=== PATIENT | female | born 1990 | race Caucasian/White ===

== ENCOUNTER → 2017-03-29 10:09 | Outpatient (CLI) | payer MEDICAID | END | disposition home or self-care (01) | LOC: D.US 10:09 | DX: F17.200 Nicotine dependence, unspecified, uncomplicated (principal); R04.2 Hemoptysis ==

== ENCOUNTER 2018-07-21 22:28 | Inpatient (IN) | payer MEDICAID ==
[~2018-07-21] VITALS: Ht 162.6 cm; Wt 64.3 kg
--- NOTE | ~2018-07-21 | HEMODYNAMI ---
PATIENT:KARI ALY MEDICAL RECORD: [id number] : [birth year] [id number] ADMISSION DATE: 07/22/18 Generatedon:07/25/201814:30 Patient name: KARI ALY Patient #: [id number] SSN: : 1990 Date of study: 07/25/2018 Page: Of Hemodynamic Procedure Report Patient Data Patient Demographics Procedure consent was obtained First Name: KARI Gender: Female Last Name: SHEEBA : 1990 Middle Initial: ISAURA Age: 27 year(s) Patient #: [id number] Race: Unknown Additional ID: [id number] Contact details [address]: [address] [place] [address] State: [place] City: [place] Zip code: [address] Past Medical History Allergies Allergen Reaction Date Comments Reported Penicillins 07/25/2018 Amoxicillin 07/25/2018 Admission Admission Data Admission Date: 07/22/2018 Admission Time: 3:48 Room #: D2134 Procedure Procedure Types Cath Procedure Diagnostic Procedure MISSY Procedure Description Procedure Date Procedure Date: 07/25/2018 Procedure Start Time: 13:47 Procedure Staff Name Function Josiah King MD Performing Physician Emma Glaser RT Monitor Rissa Martinez RN Nurse Benito Clarke CRNA Additional personnel Mahad Bustillo Clipper Operator Procedure Medications Medication Administration Route Dosage Oxygen etCO2 Nasal cannula 2 l/min Hurricaine [place] P.O. 1 Sprays Refer to Anesthesia Notes for Sedation Medications Hemodynamics Rest Heart Rate: 78 (bpm) Snapshots Pre Cath Intra NCS Post Cath Vital Signs Time Heart Resp SPO2 etCO2 NIBP Rhythm Pain Sedation Rate (ipm) (%) (mmHg) (mmHg) Status Level (bpm) 14:14:05 86 16 99 122/72(90) NSR 0 (11) 10(A) , No pain 14:18:37 82 15 100 0 118/62(89) NSR 0 (11) 9(A) , No pain 14:23:37 84 14 100 24.7 Measuring NSR 0 (11) 9(A) , No pain 14:24:22 84 17 100 27 128/68(90) NSR 0 (11) 10(A) , No pain Medications Time Medication Route Dose Verified Delivered Reason Notes Effectiv eness by by 14:12:00 Oxygen etCO2 2 Josiah Kwok used for Nasal l/min St Prince Martinez RN procedure cannula 14:12:39 Hurricaine P.O. 1 Josiah Kwok used for [place] Sprays St Prince Martinez RN procedure MD 14:12:45 Refer to Josiah Kwok Anesthesia St Prince Martinez RN Notes for Sedation Medications Procedure Log Time Note 13:50:24 Emma Counts RT(R) sent for patient. Start room use. 14:00:42 Patient received from PCU to CCL 3 Alert and oriented. Tansferred to table in Supine position. 14:05:08 Time tracking: Regular hours (M-F 7:00 - 5:00) 14:05:13 Plan of Care:Hemodynamics will remain stable., Cardiac rhythm will remain stable., Comfort level will be maintained., Respiratory function will remain adequate., Patient/ family verbilizes understanding of procedure., Procedure tolerated without complication., Recovers from procedure without complications.. 14:05:49 Warm blankets applied, and jennifer hugger turned on for patient comfort. 14:05:49 Correct patient and procedure confirmed by team. 14:05:50 Signed procedure consent form obtained from patient. 14:05:51 ECG and BP/O2 sat monitors applied to patient. 14:05:53 Full Disclosure recording started 14:05:55 Rhythm: sinus rhythm 14:05:58 Baseline sample Acquired. 14:06:20 H&P Date Dictated: 07/24/2018 Within 30 days and on chart.. 14:06:21 Pre-procedure instructions explained to patient. 14:06:21 Pre-op teaching completed and patient verbalized understanding. 14:06:33 Family in waiting room. 14:06:34 Patient NPO since Midnight. 14:07:14 Patient allergic to Penicillins 14:07:18 Patient allergic to Amoxicillin 14:07:22 Is patient on blood thinner?No 14:08:46 Patient diabetic? No. 14:09:02 SEE ANESTHESIA NOTES FOR PRE ASSESSMENT 14:09:14 Patient pain scale 0/10 ?. 14:09:42 PICC LINE RIGHT UPPER ARM W/ NORMAL SALINE 14:09:46 Lab results completed and on chart. 14:10:14 Alarms reviewed by Mindy Bonilla 14:10:56 Benito Clarke CRNA present and monitoring patient for TIVA. 14:12:00 Oxygen 2 l/min etCO2 Nasal cannula was administered by Rissa Martinez RN; used for procedure; 14:12:39 Hurricaine [place] 1 Sprays P.O. was administered by Rissa Martinez RN; used for procedure; 14:12:45 Refer to Anesthesia Notes for Sedation Medications was administered by Rissa Martinez RN; ; 14:12:48 Vital chart was started 14:14:32 Mahad Bustillo Dust Mixer present for MISSY. 14:16:51 Final Timeout: patient, procedure, and site verified with staff and physician. All members of the team are in agreement. 14:16:57 Sedation plan: TIVA Medication:Propofol 14:17:01 Physical assessment completed. ASA score P 2 - A patient with mild systemic disease as per Josiah King MD. 14:18:37 MISSY started. 14:22:34 MISSY completed. 14:22:42 Procedure ended.(Physican Out) 14:22:53 Post procedure rhythm: unchanged. 14:22:57 Post-procedure physical assessment completed. ASA score P 2 - A patient with mild systemic disease as per Josiah King MD. 14:23:00 Post procedure instruction explained to patient.Patient verbalizes understanding. 14:23:01 Patient needs reinforcement of post procedure teaching. 14:23:12 See physician's report for complete and final results. 14:27:08 Vital chart was stopped 14:27:10 Report given to PCU. 14:27:13 Patient transfered to PCU with Bed. 14:27:23 End room use (Document Last) Signature Audit [place] Stage Time Signature Unsigned Intra-Procedure 07/25/2018 Emma 2:30:47 PM Counts RT(R) Signatures Monitor : Emma Signature : Counts RT Date : Time : [facility] [address] [facility] [place] [address]
--- NOTE | ~2018-07-21 | TEE ---
PATIENT:KARI ALY [facility] MEDICAL RECORD: [id number] LOCATION:D. D.213 AGE OF PATIENT: 27 ADMISSION DATE: 07/22/18 SEX: F REFERRING PHYSICIAN: INTERPRETING PHYSICIAN: OLIMPIA GONCALVES MD TRANSESOPHAGEAL ECHOCARDIOGRAM Date: 07/25/18 MISSY CHARGE Y INDICATIONS: ASSESS FOR VEGATATION PREMEDICATIONS: PATIENT'S RESPONSE PROCEDURE DOPPLER MEASUREMENTS: LVIT LA PA 121 RA LVOT 100 RVOT 64 Asc. Ao 136 AV Gradient Peak 7.42 AV Mean 4319 AV Area 1.8 MV Gradient Peak 5.12 MV Mean 1.04 MV Area INTERPRETATION: Doppler: 2-D: COLOR FLOW DOPPLER NORMAL SALINE STUDY: MISCELLANOUS: DIAGNOSIS: PLAN: Linseed Oil Order Filler:3 Dr. Singh Salesperson Books: Asael BLANCHARD COMMENTS: DATE OF SERVICE: 07/25/2018 After general sedation via TIVA via anesthesia, the transesophageal Omniplane probe was placed in the distal esophagus and proximal stomach without difficulty. FINDINGS: No LVH. LV internal dimensions are normal. Wall motion is normal. EF is greater than or equal to 55%. The aortic valve is well visualized, it is tricuspid, no evidence of vegetation. No significant AI by color flow imaging. TRANSESOPHAGEAL ECHOCARDIOGRAM REPORT [id number] KARI ALY Left atrium is well visualized, appears to have normal dimensions. Left atrial appendage is well visualized with good contractility and no evidence of vegetation. Trivial MR. Right-sided chambers grossly normal. Tricuspid valve and pulmonic valve are both well visualized without evidence of vegetation. At the end of procedure, the transesophageal Omniplane probe was turned posteriorly and this showed no evidence of atherosclerotic debris in the descending aorta. IMPRESSION: No evidence of endocarditis in all 4 cardiac valves. TRANSINT:[id number] Voice Confirmation ID: [id number] DOCUMENT ID: [id number] at 1302 CC: [id number] DICTATION DATE: 07/25/18 1429 CASH REGISTER SERVICER: 07/26/18 0632 ADM IN [facility] [address] [place] [id number]
--- NOTE | ~2018-07-21 | MORECARE ---
CASE MANAGEMENT DISCHARGE SUMMARY PATIENT: KARI ALY ISAURA UNIT: [id number] ADM DATE: 07/22/18 AGE: 27 : [birth year] SEX: F ROOM/BED: D.5396 AUTHOR: AUDRADOC PHYSICIAN: REFERRING PHYSICIAN: ANAHI GAGNON MD DATE OF SERVICE: 07/29/18 Discharge Plan Patient Name: KARI ALY Facility: [facility]:[place] : 1990 Planned Disposition: Home Anticipated Discharge Date: 07/26/18 Discharge Date: 07/26/2018 Expected LOS: 4 Initial Reviewer: [email or web address] Initial Review Date: 07/25/2018 Generated: 07/29/18 10:57 am Comments DCP- Discharge Planning Updated by [email or web address]: Yan Dover on 07/25/18 4:[address] Patient Name: KARI ALY Admission Status: ER Accout number: [id number] Admission Date: 07-22-2018 : 1990 Admission Diagnosis:CUTANEOUS ABSCESS OF RIGHT LOWER LIMB Attending: ANAHI GAGNON Current LOS: 3 Anticipated DC Date: Planned Disposition: Home Primary Insurance: MEDICAID [place] PENDING Discharge Planning Comments: CM MET WITH PT IN ROOM TO DISCUSS DISCHARGE PLANNING AND NEEDS. PT REPORTS LIVING AT HOME INDEPENDENTLY WITH AN ADULT FRIEND. PT IS LIVING AT [address] [place] [address]. PT HAS NO MEDICAL EQUIPMENT AND NO OUTSIDE SERVICES ASSISTING IN THE HOME. CM DISCUSSED AVAILABILITY OF HOME HEALTH, REHAB SERVICES AND MEDICAL EQUIPMENT. PT DENIES DISCHARGE NEEDS, REPORTS A FRIEND WILL PICK HER UP FOR DISCHARGE HOME. CM ASKED ABOUT HAVING APPLIED FOR MEDICAID, PT REPORTS SHE DOES NOT KNOW IF THE HOSPITAL APPLIED FOR HER, SOME MULU CALLED THE ROOM AND ASKED SOME QUESTIONS ON THE PHONE AND SHE THINKS THAT IS WHAT THE CALL WAS ABOUT. CM ASKED PT ABOUT AFFORDING MEDICATIONS WHEN SHE GETS OUT OF THE HOSPITAL, PT REPORTS HAVING "SOMEONE" TO HELP HER GET HER MEDICATIONS WHEN SHE GETS OUT OF THE HOSPITAL. CM DISCUSSED POSSIBLE NEED FOR IV MEDICATIONS FOR SEVERAL WEEKS. PT REPORTS SHE DOES NOT THINK SHE CAN GET TRANSPORTATION TO GET TO HOSPITAL EVERY DAY FOR IV ANTIBIOTICS AFTER SHE GETS OUT OF THE HOSPITAL. CM DISCUSSED PT'S DRUG USE, OFFERED COMMUNITY SUPPORT PROGRAM INFORMATION AND ADDICTION RESOURCES AVAILABLE IN COMMUNITY TO INCLUDE TREATMENT PROGRAMS. PT ADMITS TO IV METHAMPHETAMINE USE BUT DENIES ADDICTION AND DENIES NEED OF THE INFORMATION OR TREATMENT. PT PLANS TO DISCHARGE HOME WITH FRIEND; PT DOES NOT HAVE TRANSPORTATION FOR OUTPATIENT INFUSION SERVICES. PT IS NOW MEDICAID PENDING BUT REPORTS HAVING "SOMEONE" TO ASSIST HER WITH AFFORDING DISCHARGE MEDICATIONS. PT DENIES NEED FOR ADDICTION OR COMMUNITY SUPPORT PROGRAMS. CM TO CONTINUE TO FOLLOW AND ASSIST NEEDED. Glass Cutter Helper: Yan Dover DCPIA - Discharge Planning Initial Assessment Updated by [email or web address]: Yan Dover on 07/25/18 5:03 pm * Is the patient Alert and Oriented? Yes * How many steps to enter\\exit or inside your home? 2 FLIGHTS * PCP DR. EUGENE * Pharmacy [facility] [address] * Preadmission Environment Home with Family * ADLs Independent * Equipment None * Other Equipment NO MEDICAL EQUIPMENT PROVIDER PREFERENCE * List name and contact numbers for known caregivers / representatives who currently or will assist patient after discharge: RICKEY HINES, MOTHER, * Verbal permission to speak to the caregivers and representatives has been obtained from the patient. N/A * Community resources currently utilized None * Please name any agencies selected above. NONE * Additional services required to return to the preadmission environment? No * Can the patient safely return to the preadmission environment? Yes * Has this patient been hospitalized within the prior 30 days at any hospital? No Last DP export: 07/25/18 4:09 p Patient Name: KARI ALY Page [id number] at 0957 All edits/amendments must be made on the electronic document DICTATION DATE: 07/29/18955 FIRE HYDRANT OPERATOR: BETINA 07/29/18955 RPT#: [id number] DC DATE:07/26/18 STATUS: DIS IN [facility] [address] [place] [address] END OF REPORT
--- NOTE | ~2018-07-21 | OP ---
PATIENT NAME: KARI ALY MEDICAL RECORD: [id number] :[birth year] LOCATION:D.M2 D.2134 ADMISSION DATE:07/22/18 SURGEON: NIRU CHOWDHURY MD DATE OF OPERATION: 07/23/2018 PREOPERATIVE DIAGNOSES: 1. Right calf abscess. 2. Hepatitis C. 3. IV drug abuse. POSTOPERATIVE DIAGNOSES: 1. Right calf abscess. 2. Hepatitis C. 3. IV drug abuse. PROCEDURE: I&D of right calf abscess. SURGEON: Niru Chowdhury MD REPORT OF PROCEDURE: The patient's right calf was prepped and draped in sterile fashion. A longitudinal incision was made through the area of fluctuance. There was a large amount of purulence encountered and cultures were taken x2. We suctioned out the purulence and then irrigated out the wound with peroxide and saline solution. I checked the area and saw there was no sign of any tunneling. The wound was then packed with half-inch packing strips dipped in peroxide and covered with 4 x 4s and Kerlix. COMPLICATIONS: None. CONDITION: Stable. ANESTHESIA: General endotracheal. BLOOD LOSS: 30 mL. TRANSINT:[id number] Voice Confirmation ID: [id number] DOCUMENT ID: [id number] NIRU CHOWDHURY MD at 1219 CC: [id number] DICTATION DATE: 07/23/18 1555 ANTHROPOMETRIST: 07/23/18 2249 DIS IN 07/26/18 [place] [address]
--- NOTE | ~2018-07-21 | EC ---
PATIENT:KARI ALY ISAURA DATE OF SERVICE: 07/22/18 SEX: F MEDICAL RECORD: [id number] DATE OF : [birth year] LOCATION:D.M2 D.213 AGE OF PATIENT: 27 ADMISSION DATE: 07/22/18 REFERRING PHYSICIAN: INTERPRETING PHYSICIAN: CHEL LUNA MD ECHOCARDIOGRAM REPORT ECHO CHARGES 4 ECHO COMPLETE Date: 07/23/18 CLINICAL DIAGNOSIS: ASSESS VEGATATATION, DRUG USE, LOWER GRADE FEVER, INFECTION IN LOWER R LEG ECHOCARDIOGRAPHIC MEASUREMENTS (adult normal given) AC root (d.<3.7cm) 3.0 cm LV Septum d (<1.2 cm> 1.3 cm Valve Excursion 1.3 cm LV Septum (systole) 1.4 cm Left Atria (s.<4.0cm> 2.7 cm LVPW d(<1.2cm) 1.3 cm RV (d.<2.3cm) 3.8 cm LVPW (sytole) 1.5 cm LV diastole(<5.6CM) 3.8 cm MV E-F(>70mm/sec) cm LV systole 2.3 cm LVOT Diameter 1.7 cm MV exc.(>10mm) 1.4 cm Est.ejection fraction (50-75%) % DOPPLER: LVIT cm/sec A 56.0 cm/sec E 96.0 cm/sec LA cm/sec RVSP 24 mmHg LVOT 100 cm/sec AOP1/2T m/s Asc. Ao 136 cm/sec RVOT 64 cm/sec RA cm/sec PA 121 cm/sec AV Gradient Peak 7.42 mmHg AV Mean 4319 mmHg AV Area 1.8 cm MV Gradient Peak 5.12 mmHg MV Mean 1.04 mmHg MV Area cm COMMENTS: Inside Meter Tester: Asael BLANCHARD Toy Stuffer: 2 Dr. Diaz TAPE# PACS Pericardial Effusion N DATE OF SERVICE: 07/23/2018 PROCEDURE: Echocardiogram. FINDINGS: 1. Left ventricular chamber size is within normal limits. Left ventricular systolic function is normal. Overall ejection fraction estimated at 60%. 2. Left atrium, right atrium, right ventricle chamber size is within normal limits. ECHOCARDIOGRAM REPORT [id number] KARI ALY ISAURA 3. Valvular structures. There is a lesion on the mitral valve leaflet, compatible with endocarditis as well on the aortic valve there is a lesion that is compatible with endocarditis. Remaining valvular structures have normal structure and motion. 4. Doppler interrogation reveals trace mitral regurgitation, no other valvular insufficiency or stenosis. Pulmonary systolic pressure is normal estimated at 24 mmHg. TRANSINT:[id number] Voice Confirmation ID: [id number] DOCUMENT ID: [id number] CHEL LUNA MD at 1059 CC: [id number] DICTATION DATE: 07/23/181239 ROUSTABOUT: 07/23/18 1246 ADM IN [place] [id number] [place] [id number]
--- NOTE | ~2018-07-21 | MORECARE ---
CASE MANAGEMENT DISCHARGE SUMMARY PATIENT: KARI ALY ISAURA UNIT: [id number] ADM DATE: 07/22/18 AGE: 27 : [birth year] SEX: F ROOM/BED: D.4820 AUTHOR: AUDRA,DOC PHYSICIAN: REFERRING PHYSICIAN: ANAHI GAGNON MD DATE OF SERVICE: 07/25/18 Discharge Plan Patient Name: KARI ALY Facility: [facility]:[place] : 1990 Planned Disposition: Home Anticipated Discharge Date: Discharge Date: Expected LOS: Initial Reviewer: [email or web address] Initial Review Date: 07/25/2018 Generated: 07/25/18 6:09 pm Comments DCP- Discharge Planning Updated by [email or web address]: Yan Dover on 07/25/18 4:[address] Patient Name: KARI ALY Admission Status: ER Accout number: [id number] Admission Date: 07-22-2018 : 1990 Admission Diagnosis:CUTANEOUS ABSCESS OF RIGHT LOWER LIMB Attending: ANAHI GAGNON Current LOS: 3 Anticipated DC Date: Planned Disposition: Home Primary Insurance: MEDICAID [place] PENDING Discharge Planning Comments: CM MET WITH PT IN ROOM TO DISCUSS DISCHARGE PLANNING AND NEEDS. PT REPORTS LIVING AT HOME INDEPENDENTLY WITH AN ADULT FRIEND. PT IS LIVING AT [address] [place] [address]. PT HAS NO MEDICAL EQUIPMENT AND NO OUTSIDE SERVICES ASSISTING IN THE HOME. CM DISCUSSED AVAILABILITY OF HOME HEALTH, REHAB SERVICES AND MEDICAL EQUIPMENT. PT DENIES DISCHARGE NEEDS, REPORTS A FRIEND WILL PICK HER UP FOR DISCHARGE HOME. CM ASKED ABOUT HAVING APPLIED FOR MEDICAID, PT REPORTS SHE DOES NOT KNOW IF THE HOSPITAL APPLIED FOR HER, SOME MULU CALLED THE ROOM AND ASKED SOME QUESTIONS ON THE PHONE AND SHE THINKS THAT IS WHAT THE CALL WAS ABOUT. CM ASKED PT ABOUT AFFORDING MEDICATIONS WHEN SHE GETS OUT OF THE HOSPITAL, PT REPORTS HAVING "SOMEONE" TO HELP HER GET HER MEDICATIONS WHEN SHE GETS OUT OF THE HOSPITAL. CM DISCUSSED POSSIBLE NEED FOR IV MEDICATIONS FOR SEVERAL WEEKS. PT REPORTS SHE DOES NOT THINK SHE CAN GET TRANSPORTATION TO GET TO HOSPITAL EVERY DAY FOR IV ANTIBIOTICS AFTER SHE GETS OUT OF THE HOSPITAL. CM DISCUSSED PT'S DRUG USE, OFFERED COMMUNITY SUPPORT PROGRAM INFORMATION AND ADDICTION RESOURCES AVAILABLE IN COMMUNITY TO INCLUDE TREATMENT PROGRAMS. PT ADMITS TO IV METHAMPHETAMINE USE BUT DENIES ADDICTION AND DENIES NEED OF THE INFORMATION OR TREATMENT. PT PLANS TO DISCHARGE HOME WITH FRIEND; PT DOES NOT HAVE TRANSPORTATION FOR OUTPATIENT INFUSION SERVICES. PT IS NOW MEDICAID PENDING BUT REPORTS HAVING "SOMEONE" TO ASSIST HER WITH AFFORDING DISCHARGE MEDICATIONS. PT DENIES NEED FOR ADDICTION OR COMMUNITY SUPPORT PROGRAMS. CM TO CONTINUE TO FOLLOW AND ASSIST NEEDED. Souvenir And Novelty Maker: Yan Dover DCPIA - Discharge Planning Initial Assessment Updated by [email or web address]: Yan Dover on 07/25/18 5:03 pm * Is the patient Alert and Oriented? Yes * How many steps to enter\\exit or inside your home? 2 FLIGHTS * PCP DR. EUGENE * Pharmacy [facility] [address] * Preadmission Environment Home with Family * ADLs Independent * Equipment None * Other Equipment NO MEDICAL EQUIPMENT PROVIDER PREFERENCE * List name and contact numbers for known caregivers / representatives who currently or will assist patient after discharge: RICKEY HINES, MOTHER, * Verbal permission to speak to the caregivers and representatives has been obtained from the patient. N/A * Community resources currently utilized None * Please name any agencies selected above. NONE * Additional services required to return to the preadmission environment? No * Can the patient safely return to the preadmission environment? Yes * Has this patient been hospitalized within the prior 30 days at any hospital? No Patient Name: KARI ALY Page [phone] at 1709 All edits/amendments must be made on the electronic document DICTATION DATE: 07/25/181708 RESEARCH LIBRARIAN: BETINA 07/25/181708 RPT#: [id number] DC DATE: STATUS: ADM IN [facility] [address] [place] [address] END OF REPORT
[2018-07-21 23:30] VITALS: BP 131/86
[2018-07-22] VITALS (7 sets, daily range): BP systolic 101–136; BP diastolic 48–76; BMI 27.1
[2018-07-22 02:13] LABS: HEMATOCRIT 35.5 % (36.0-48.0); HEMOGLOBIN 12.3 g/dL (12-16); LYMPHOCYTES 21.5 % (15-50); MCH 29.2 pg (26.0-34.0); MCHC 34.6 g/dL (31.0-37.0); MCV 84.3 fL (80.0-100.0); MEAN PLATELET VOLUME 9.4 fL (7.4-10.4); NEUTROPHILS 74.8 % (40-80); PLATELET COUNT 263 10x3/uL (130-400); RBC 4.21 10x6/uL (4.00-5.40); RDW 13.2 % (11.5-14.5); WBC 7.6 10x3/uL (4.8-10.8)
[2018-07-22 02:15] LABS: ALKALINE PHOSPHATASE 78 U/L (46-116); ALT (SGPT) 25 U/L (10-68); BILIRUBIN - TOTAL 0.46 mg/dL (0.2-1.3); C-REACTIVE PROTEIN 5.6 mg/dL (0.0-0.9); CALC OSMOLALITY 277 mosm/kg (275-300); CALCIUM 8.7 mg/dL (8.5-10.1); CARBON DIOXIDE 28.3 mmol/L (21.0-32.0); CHLORIDE - SERUM 101 mmol/L (98-107); CREATININE - SERUM 0.7 mg/dL (0.6-1.3); GLUCOSE 100 mg/dL (74-106); PROTEIN - SERUM 6.8 g/dL (6.4-8.2); SODIUM 140 mmol/L (136-145); UREA NITROGEN 11 mg/dL (7-18); eGFR NON AFRICAN AMERICAN > 90 mL/min (90-120)
[2018-07-22 02:19] LABS: HCG URINE NEGATIVE (NEGATIVE)
[2018-07-22 02:29] LABS: UDS - AMPHET POSITIVE QUAL (NEGATIVE); UDS - BARB NEGATIVE QUAL (NEGATIVE); UDS - BENZO POSITIVE QUAL (NEGATIVE); UDS - COCAINE NEGATIVE QUAL (NEGATIVE); UDS - OPIATE NEGATIVE QUAL (NEGATIVE); UDS - PCP NEGATIVE QUAL (NEGATIVE); UDS - THC NEGATIVE QUAL (NEGATIVE)
[2018-07-22 02:30] LABS: APPEARANCE HAZY (CLEAR); BILIRUBIN NEGATIVE (NEGATIVE); COLOR AMBER (YELLOW); GLUCOSE NEGATIVE (NEGATIVE); KETONE NEGATIVE (NEGATIVE); NITRITE NEGATIVE (NEGATIVE); PH 6.5 (5.0-6.0); PROTEIN NEGATIVE (NEGATIVE); SPECIFIC GRAVITY 1.015 (1.005-1.020)
[2018-07-22 02:33] LABS: BACTERIA MANY /hpf (NONE SEEN); MUCUS >1+ /lpf (NONE SEEN); RED CELLS - URINE 0-5 /hpf (0-5); WHITE CELLS - URINE 0-5 /hpf (0-5)
[2018-07-22] MEDS ORDERED: ZOLOFT25 MG (05:00)
[2018-07-22] MEDS ORDERED: VALTREX500 MG PO (05:01)
[2018-07-23 01:13] VITALS: BP 118/63
[2018-07-23 05:01] VITALS: BP 122/81
[2018-07-23 07:19] LABS: BASOPHILS 0.3 % (0-2); EOSINOPHILS 1.5 % (0-7); HEMATOCRIT 34.5 % (36.0-48.0); HEMOGLOBIN 11.7 g/dL (12-16); IMMATURE GRANULOCYTES 0.1 % (0-5); LYMPHOCYTES 20.3 % (15-50); MCH 29.5 pg (26.0-34.0); MCHC 33.9 g/dL (31.0-37.0); MEAN PLATELET VOLUME 9.6 fL (7.4-10.4); MONOCYTES 6.9 % (2-11); NEUTROPHILS 70.9 % (40-80); PLATELET COUNT 259 10x3/uL (130-400); RBC 3.96 10x6/uL (4.00-5.40); RDW 13.7 % (11.5-14.5); WBC 7.8 10x3/uL (4.8-10.8)
[2018-07-23 07:21] LABS: MCV 87.1 fL (80.0-100.0)
[2018-07-23 07:38] LABS: CALC OSMOLALITY 274 mosm/kg (275-300); CALCIUM 8.2 mg/dL (8.5-10.1); CARBON DIOXIDE 28.8 mmol/L (21.0-32.0); CHLORIDE - SERUM 101 mmol/L (98-107); CREATININE - SERUM 0.6 mg/dL (0.6-1.3); GLUCOSE 83 mg/dL (74-106); POTASSIUM - SERUM 3.3 mmol/L (3.5-5.1); SODIUM 139 mmol/L (136-145); eGFR NON AFRICAN AMERICAN > 90 mL/min (90-120)
[2018-07-23 07:40] LABS: UREA NITROGEN 6 mg/dL (7-18)
[2018-07-23 08:33] VITALS: BP 115/62
[2018-07-23 11:45] VITALS: BP 103/45
[2018-07-23 13:45] VITALS: BMI 27.2
[2018-07-23 21:31] VITALS: BP 128/74
[2018-07-24 00:30] VITALS: BP 117/57
[2018-07-24 05:28] LABS: BASOPHILS 0.2 % (0-2); EOSINOPHILS 2.2 % (0-7); HEMATOCRIT 36.1 % (36.0-48.0); IMMATURE GRANULOCYTES 0.2 % (0-5); LYMPHOCYTES 28.8 % (15-50); MCH 29.1 pg (26.0-34.0); MCHC 33.2 g/dL (31.0-37.0); MCV 87.6 fL (80.0-100.0); MEAN PLATELET VOLUME 9.6 fL (7.4-10.4); MONOCYTES 6.5 % (2-11); NEUTROPHILS 62.1 % (40-80); PLATELET COUNT 285 10x3/uL (130-400); RBC 4.12 10x6/uL (4.00-5.40); RDW 13.6 % (11.5-14.5); WBC 6.5 10x3/uL (4.8-10.8)
[2018-07-24 05:33] VITALS: BP 112/66
[2018-07-24 06:01] LABS: CALC OSMOLALITY 275 mosm/kg (275-300); CALCIUM 8.5 mg/dL (8.5-10.1); CARBON DIOXIDE 28.2 mmol/L (21.0-32.0); CHLORIDE - SERUM 103 mmol/L (98-107); CREATININE - SERUM 0.6 mg/dL (0.6-1.3); GLUCOSE 118 mg/dL (74-106); MAGNESIUM - SERUM 1.8 mg/dL (1.8-2.4); PHOSPHOROUS 3.1 mg/dL (2.5-4.9); POTASSIUM - SERUM 3.8 mmol/L (3.5-5.1); SODIUM 139 mmol/L (136-145); UREA NITROGEN 5 mg/dL (7-18); eGFR NON AFRICAN AMERICAN > 90 mL/min (90-120)
[2018-07-24 08:12] VITALS: BP 115/81
[2018-07-24 11:22] VITALS: BP 126/78
[2018-07-24 15:39] VITALS: Ht 162.6 cm; Wt 64.3 kg
[2018-07-24 15:41] VITALS: BP 122/76
[2018-07-24 21:31] VITALS: BP 122/70
[2018-07-25 00:49] VITALS: BP 115/49
[2018-07-25 05:58] VITALS: BP 118/77
[2018-07-25 06:38] LABS: BASOPHILS 0.6 % (0-2); EOSINOPHILS 3.5 % (0-7); HEMATOCRIT 38.4 % (36.0-48.0); HEMOGLOBIN 12.7 g/dL (12-16); IMMATURE GRANULOCYTES 0.4 % (0-5); LYMPHOCYTES 36.5 % (15-50); MCH 29.3 pg (26.0-34.0); MCHC 33.1 g/dL (31.0-37.0); MCV 88.5 fL (80.0-100.0); MEAN PLATELET VOLUME 9.5 fL (7.4-10.4); MONOCYTES 7.9 % (2-11); NEUTROPHILS 51.1 % (40-80); PLATELET COUNT 311 10x3/uL (130-400); RBC 4.34 10x6/uL (4.00-5.40); RDW 13.6 % (11.5-14.5); WBC 5.2 10x3/uL (4.8-10.8)
[2018-07-25 06:47] LABS: CALCIUM 8.4 mg/dL (8.5-10.1); CARBON DIOXIDE 29.7 mmol/L (21.0-32.0); CHLORIDE - SERUM 102 mmol/L (98-107); CREATININE - SERUM 0.7 mg/dL (0.6-1.3); GLUCOSE 88 mg/dL (74-106); SODIUM 142 mmol/L (136-145); eGFR NON AFRICAN AMERICAN > 90 mL/min (90-120)
[2018-07-25 06:48] LABS: CALC OSMOLALITY 278 mosm/kg (275-300); POTASSIUM - SERUM 3.2 mmol/L (3.5-5.1); UREA NITROGEN 3 mg/dL (7-18)
[2018-07-25 08:54] VITALS: BP 120/50
[2018-07-25 10:50] VITALS: BP 113/66
[2018-07-25 14:14] VITALS: BP 149/62
[2018-07-25 19:00] VITALS: BP 127/73
[2018-07-26 02:31] VITALS: BP 121/79
[2018-07-26 06:16] LABS: BASOPHILS 0.5 % (0-2); EOSINOPHILS 1.5 % (0-7); HEMATOCRIT 35.5 % (36.0-48.0); HEMOGLOBIN 11.9 g/dL (12-16); IMMATURE GRANULOCYTES 0.3 % (0-5); LYMPHOCYTES 21.4 % (15-50); MCH 29.5 pg (26.0-34.0); MCHC 33.5 g/dL (31.0-37.0); MCV 88.1 fL (80.0-100.0); MEAN PLATELET VOLUME 9.4 fL (7.4-10.4); MONOCYTES 6.4 % (2-11); NEUTROPHILS 69.9 % (40-80); PLATELET COUNT 315 10x3/uL (130-400); RBC 4.03 10x6/uL (4.00-5.40); RDW 13.7 % (11.5-14.5); WBC 5.9 10x3/uL (4.8-10.8)
[2018-07-26 06:30] LABS: CALCIUM 9.2 mg/dL (8.5-10.1); CARBON DIOXIDE 27.7 mmol/L (21.0-32.0); CHLORIDE - SERUM 103 mmol/L (98-107); CREATININE - SERUM 0.6 mg/dL (0.6-1.3); GLUCOSE 104 mg/dL (74-106); SODIUM 139 mmol/L (136-145); eGFR NON AFRICAN AMERICAN > 90 mL/min (90-120)
[2018-07-26 06:34] LABS: CALC OSMOLALITY 274 mosm/kg (275-300); POTASSIUM - SERUM 3.7 mmol/L (3.5-5.1); UREA NITROGEN 4 mg/dL (7-18)
[2018-07-26 07:33] VITALS: BP 141/66
[2018-07-26 09:17] LABS: HEP B CORE AB TOTAL Negative (Negative)
[2018-07-26] MEDS ORDERED: VIBRAMYCIN 100100 MG PO (11:18)
[2018-07-26 11:43] VITALS: BP 137/64
== END 2018-07-26 13:20 | disposition home or self-care (01) | DRG 603 ==
LOC: D.ER 22:28 → D.M2 07-22 03:48 → D.ER 07-22 04:34 → D.M2 07-26 13:20
PROVIDERS: Family Medicine; Internal Medicine Nephrology; Student in an Organized Health Care Education/Training Program; Surgery
PROC: 05HC33Z Insertion of Infusion Device into Left Basilic Vein, Percutaneous Approach (ICD-10-PCS; 2018-07-22)
PROC: B54NZZA Ultrasonography of Left Upper Extremity Veins, Guidance (ICD-10-PCS; 2018-07-22)
PROC: 05HB33Z Insertion of Infusion Device into Right Basilic Vein, Percutaneous Approach (ICD-10-PCS; 2018-07-22)
PROC: 0H9KXZZ Drainage of Right Lower Leg Skin, External Approach (ICD-10-PCS; principal; 2018-07-23 12:30)
DX: L03.115 Cellulitis of right lower limb (principal); N39.0 Urinary tract infection, site not specified; L02.415 Cutaneous abscess of right lower limb; F32.9 Major depressive disorder, single episode, unspecified; E87.6 Hypokalemia; F15.10 Other stimulant abuse, uncomplicated; F19.10 Other psychoactive substance abuse, uncomplicated; D64.9 Anemia, unspecified; B19.20 Unspecified viral hepatitis C without hepatic coma; Z87.891 Personal history of nicotine dependence; B95.62 Methicillin resistant Staphylococcus aureus infection as the cause of diseases classified elsewhere

== ENCOUNTER 2019-02-25 00:10 | Emergency (ER) | payer SELFPAY ==
[~2019-02-25 00:10] MED LIST: VALTREX500 MG PO; VIBRAMYCIN 100100 MG PO; ZOLOFT25 MG
[2019-02-25 00:14] VITALS: BMI 25.8
[2019-02-25] MEDS ORDERED: VOLTAREN75 MG PO (00:44)
[2019-02-25] MEDS ORDERED: BACTRIM 400-801 TAB PO (00:44)
[2019-02-25 01:22] VITALS: BP 115/66
== END 2019-02-25 01:23 | disposition home or self-care (01) ==
LOC: D.ER 00:10
DX: L03.211 Cellulitis of face (principal)

== ENCOUNTER 2020-01-19 14:54 | Emergency (ER) | payer MEDICAID ==
[~2020-01-19] VITALS: Ht 162.6 cm; Wt 86.4 kg
[~2020-01-19 14:54] MED LIST changes: +BACTRIM 400-801 TAB PO; +VOLTAREN75 MG PO
[2020-01-19 15:31] LABS: BASOPHILS 0.2 % (0-2); EOSINOPHILS 0.9 % (0-7); HEMATOCRIT 41.7 % (36.0-48.0); HEMOGLOBIN 13.8 g/dL (12-16); IMMATURE GRANULOCYTES 0.2 % (0-5); LYMPHOCYTES 38.2 % (15-50); MCHC 33.1 g/dL (31.0-37.0); MCV 84.6 fL (80.0-100.0); MEAN PLATELET VOLUME 9.1 fL (7.4-10.4); MONOCYTES 6.7 % (2-11); NEUTROPHILS 53.8 % (40-80); PLATELET COUNT 323 10x3/uL (130-400); RBC 4.93 10x6/uL (4.00-5.40); RDW 14.5 % (11.5-14.5); WBC 6.4 10x3/uL (4.8-10.8)
[2020-01-19 15:37] VITALS: Ht 162.6 cm; Wt 86.4 kg
[2020-01-19 16:36] LABS: BILIRUBIN NEGATIVE (NEGATIVE); GLUCOSE NEGATIVE (NEGATIVE); KETONE NEGATIVE (NEGATIVE); NITRITE NEGATIVE (NEGATIVE); UROBILINOGEN NORMAL (NORMAL)
[2020-01-19 16:37] LABS: BACTERIA MODERATE /hpf (NEGATIVE); EPITHELIAL CELLS 0-5 /hpf (0-5); RED CELLS - URINE OCC /hpf (0-5); WHITE CELLS - URINE 0-5 /hpf (NEGATIVE)
[2020-01-19 16:38] LABS: ALBUMIN 4.4 g/dL (3.4-5.0); ALKALINE PHOSPHATASE 95 U/L (30-120); ALT (SGPT) 45 U/L (10-68); AMYLASE - SERUM 42 U/L (25-115); BILIRUBIN - TOTAL 0.37 mg/dL (0.2-1.3); CALC OSMOLALITY 279 mosm/kg (275-300); CALCIUM 9.7 mg/dL (8.5-10.1); CHLORIDE - SERUM 103 mmol/L (98-107); CREATININE - SERUM 0.8 mg/dL (0.6-1.3); GLUCOSE 95 mg/dL (74-106); LIPASE 119 U/L (73-393); POTASSIUM - SERUM 3.9 mmol/L (3.5-5.1); PROTEIN - SERUM 8.1 g/dL (6.4-8.2); SODIUM 140 mmol/L (136-145); UREA NITROGEN 16 mg/dL (7-18); eGFR NON AFRICAN AMERICAN > 90 mL/min (90-120)
[2020-01-19 16:43] LABS: TROPONIN-I < 0.017 ng/mL (0.000-0.060)
[2020-01-19 17:22] LABS: HCG URINE NEGATIVE (NEGATIVE)
[2020-01-19] MEDS ORDERED: ULTRAM50 MG PO (19:05)
[2020-01-19 19:31] VITALS: BP 120/69
== END 2020-01-19 19:31 | disposition home or self-care (01) ==
LOC: D.ER 14:54
PROVIDERS: Family Medicine
DX: K80.20 Calculus of gallbladder without cholecystitis without obstruction (principal); K82.9 Disease of gallbladder, unspecified; R10.11 Right upper quadrant pain

== ENCOUNTER 2021-02-16 13:01 | Emergency (ER) | payer MEDICAID ==
[~2021-02-16] VITALS: Ht 162.6 cm; Wt 59.1 kg
[~2021-02-16 13:01] MED LIST changes: +DICLOFENAC SODI50 MG PO; +LOMOTIL 2.5-0.1 EAC1 PO; +ULTRAM50 MG PO; +ZOFRAN ODT4 MG/UDTAB PO
[2021-02-16 13:15] VITALS: Ht 162.6 cm; Wt 59.1 kg
[2021-02-16 14:04] LABS: BASOPHILS 0.5 % (0-2); HEMATOCRIT 48.7 % (36.0-48.0); HEMOGLOBIN 16.6 g/dL (12-16); LYMPHOCYTES 20.6 % (15-50); MCH 30.2 pg (26.0-34.0); MCHC 34.2 g/dL (31.0-37.0); MCV 88.4 fL (80.0-100.0); NEUTROPHILS 69.9 % (40-80); RDW 14.5 % (11.5-14.5); WBC 7.9 10x3/uL (4.8-10.8)
[2021-02-16 14:11] LABS: PLATELET COUNT 339 10x3/uL (130-400)
[2021-02-16 14:17] LABS: HCG SERUM NEGATIVE (NEGATIVE)
[2021-02-16 14:18] LABS: CALC OSMOLALITY 275 mosm/kg (275-300); CALCIUM 8.6 mg/dL (8.5-10.1); CARBON DIOXIDE 26.5 mmol/L (21.0-32.0); CHLORIDE - SERUM 100 mmol/L (98-107); CREATININE - SERUM 0.8 mg/dL (0.6-1.3); GLUCOSE 96 mg/dL (74-106); POTASSIUM - SERUM 3.5 mmol/L (3.5-5.1); SODIUM 137 mmol/L (136-145); UREA NITROGEN 17 mg/dL (7-18); eGFR NON AFRICAN AMERICAN 90 mL/min (90-120)
[2021-02-16 14:24] LABS: ALBUMIN 3.5 g/dL (3.4-5.0); ALKALINE PHOSPHATASE 71 U/L (30-120); ALT (SGPT) 23 U/L (10-68); AMYLASE - SERUM 22 U/L (25-115); BILIRUBIN - TOTAL 0.49 mg/dL (0.2-1.3); LIPASE 50 U/L (73-393)
[2021-02-16 15:50] VITALS: BP 118/74
[2021-02-16] MEDS ORDERED: FLORASTOR250 MG PO (15:55)
[2021-02-16] MEDS ORDERED: FLAGYL500 MG PO (15:55)
[2021-02-16] MEDS ORDERED: PEPCID40 MG PO (15:55)
[2021-02-16] MEDS ORDERED: CIPRO500 MG PO (15:55)
[2021-02-16] MEDS ORDERED: ZOFRAN ODT4 MG/UDTAB PO (15:55)
== END 2021-02-16 17:24 | disposition home or self-care (01) ==
LOC: D.ER 13:01
PROVIDERS: Family Medicine
DX: K52.9 Noninfective gastroenteritis and colitis, unspecified (principal); R10.9 Unspecified abdominal pain; R07.9 Chest pain, unspecified; E86.0 Dehydration